=== PATIENT | female | born 1995 | race Caucasian/White ===

== ENCOUNTER 2016-04-23 13:52 | Emergency (ER) | payer SELFPAY ==
--- NOTE | 2016-04-23 14:48 | ED.PDOC ---
History of Present Illness - General Chief Complaint: ENT Problem Stated Complaint: sorethroat Time Seen by Provider: 04/23/16 14:44 Source: patient Exam Limitations: no limitations - History of Present Illness Initial Comments: Patient stated that her symptoms started 4 days ago with nasal congestion the with mild productive cough today.She stated that she was exposed to his son with same symptoms who got sick first. with uri. Timing/Duration: other - 4 days ago Severity: moderate Improving Factors: nothing Worsening Factors: nothing Associated Symptoms: cough Allergies/Adverse Reactions: Allergies Cefprozil [From Cefzil] Allergy (Verified 08/24/12 08:18) Clarithromycin [From Biaxin] Allergy (Verified 08/24/12 08:18) Home Medications: Ambulatory Orders Benzonatate Perles [Tessalon Perles] 200 mg PO BID #30 cap 04/23/16 Chlorpheniramine Maleate [Chlor-Trimeton Allergy] 12 mg PO BID #20 tab 04/23/16 Review of Systems - Review of Systems Constitutional: States: no symptoms reported EENTM: States: see HPI Respiratory: States: see HPI Cardiology: States: no symptoms reported Gastrointestinal/Abdominal: States: no symptoms reported Genitourinary: States: no symptoms reported Musculoskeletal: States: no symptoms reported Skin: States: no symptoms reported Neurological: States: no symptoms reported Endocrine: States: no symptoms reported Hematologic/Lymphatic: States: no symptoms reported Past Medical History (General) - Patient Medical History Hx Seizures: No Hx Stroke: No Hx Dementia: No Hx Asthma: No Hx of COPD: No Hx Cardiac Disorders: No Hx Congestive Heart Failure: No Hx Pacemaker: No Hx Hypertension: No Hx Thyroid Disease: No Hx Diabetes: No Hx Gastroesophageal Reflux: No Hx Renal Disease: No Hx Cancer: No Hx of HIV: No Hx Hepatitis C: No Hx MRSA: No Surgical History: no surgical history - Vaccination History Hx Influenza Vaccination: No Hx Pneumococcal Vaccination: No Immunizations Up to Date: Yes - Social History Hx Tobacco Use: No Hx Alcohol Use: No Hx Substance Use: No Hx Substance Use Treatment: No Hx Depression: No Feels Threatened In Home Enviroment: No Feels Threatened In a Relationship: No Hx Physical Abuse: No Hx Emotional Abuse: No Hx Suspected Abuse: No Family Medical History - Family History Mother Family History: No Known Living Status: Still Living Hx Family Asthma: No Hx Family Congestive Heart Failure: No Hx Family Hypertension: No Hx Family Stroke: No Hx Cardiac Disease: No Hx Family Diabetes: Yes Hx Family Cancer: No Physical Exam - Physical Exam General Appearance: Alert, No apparent distress Ears, Nose, Throat: hearing grossly normal, nasal congestion - left nares Neck: full range of motion, supple, normal inspection Respiratory: chest non-tender, lungs clear, normal breath sounds, no respiratory distress Cardiovascular/Chest: normal peripheral pulses, regular rate, rhythm, no edema, no gallop, no JVD, no murmur Gastrointestinal/Abdominal: normal bowel sounds, non tender, soft Back Exam: normal inspection, no CVA tenderness, no vertebral tenderness Extremity: normal range of motion, non-tender, normal inspection Neurologic: no motor/sensory deficits, alert, normal mood/affect, oriented x 3 Skin Exam: normal color, warm/dry Lymphatic: no adenopathy Progress - Results/Orders Results/Orders: FLU SWAB-NEGATIVE Departure - Departure Clinical Impression: Upper respiratory infection, viral Time of Disposition: 15:55 Disposition: Discharge to Home or Self Care Condition: Good Departure Forms: ED Discharge - Pt. Copy, Patient Portal Self Enrollment Instructions: DI for Viral Upper Respiratory Infection -- Adult Prescriptions: Chlorpheniramine Maleate [Chlor-Trimeton Allergy] 12 mg PO BID #20 tab Benzonatate Perles [Tessalon Perles] 200 mg PO BID #30 cap Home Medications: Ambulatory Orders Benzonatate Perles [Tessalon Perles] 200 mg PO BID #30 cap 04/23/16 Chlorpheniramine Maleate [Chlor-Trimeton Allergy] 12 mg PO BID #20 tab 04/23/16
[2016-04-23 16:32] VITALS: BP 117/78; TEMP 96.8; O2SAT 96
== END 2016-04-23 16:32 | disposition home or self-care (01) ==
LOC: ER 13:52
DX: J06.9 Acute upper respiratory infection, unspecified (principal); Z88.3 Allergy status to other anti-infective agents